=== PATIENT | male | born 1995 | race Two or more races ===

== ENCOUNTER 2016-10-30 09:44 | Emergency (ER) | payer BC ==
[~2016-10-30] VITALS: Ht 167.6 cm; Wt 54.4 kg
[2016-10-30 09:51] VITALS: BP 113/65
--- NOTE | 2016-10-30 10:40 | NUR ---
pt to x-ray via wheel chair
--- NOTE | 2016-10-30 10:55 | NUR ---
Patient transferred to via wheelchair by jules. RN evaluating patient.
--- NOTE | 2016-10-30 10:59 | NUR ---
Dr. Belcher evaluating patient as fast track in [place].
[2016-10-30] MEDS ORDERED: IBUPROFEN 600 MG TAB PO ONE (11:05)
--- NOTE | 2016-10-30 11:05 | NUR ---
MEDICATED FOR PAIN
--- NOTE | 2016-10-30 11:15 | NUR ---
ALICE WRAP APPLIED TO RT. ANKLE
--- NOTE | 2016-10-30 11:25 | NUR ---
CRUTCH WALKING BY EMT W/O DIFFICULTY.
[2016-10-30 11:46] VITALS: BP 133/82
--- NOTE | 2016-10-30 11:46 | NUR ---
DPatient discharged with v/s stable. Written and verbal after care instructions given and explained. Patient alert, oriented and verbalized understanding of instructions. Ambulatory with steady gait. All questions addressed prior to discharge. ID band removed. Patient advised to follow up with PMD. Rx of MOTRIN given. Patient educated on indication of medication including possible reaction and side effects. Opportunity to ask questions provided and answered.
== END 2016-10-30 11:46 | disposition home or self-care (01) ==
LOC: MED 09:44
DX: S93.491A Sprain of other ligament of right ankle, initial encounter (principal); X58.XXXA Exposure to other specified factors, initial encounter; Y93.89 Activity, other specified; Y92.89 Other specified places as the place of occurrence of the external cause; Y99.8 Other external cause status
CPT/HCPCS: 73610; 99284